=== PATIENT | male | born 1955 | race Two or more races ===

== ENCOUNTER 2022-11-04 11:28 | Emergency (ER) | payer MEDICARE, MEDICAID, SELFPAY ==
--- NOTE | ~2022-11-04 | XR_ITS ---
EXAMINATION: XR CHEST CLINICAL INFORMATION: Leg swelling COMPARISON: None TECHNIQUE: 2 views of the chest were obtained. FINDINGS: Normal symmetric lung volumes. No parenchymal consolidation. No pleural effusion. No pneumothorax. Cardiomediastinal silhouette and pulmonary vascularity are within normal limits. Aorta is atherosclerotic. No acute osseous abnormalities. XR/XR chest 2V IMPRESSION: Clear lungs
[2022-11-04 11:51] VITALS: BP 157/80; PULSE 83; RESP 18; TEMP 36.7; O2SAT 97; BMI 19.8
--- NOTE | 2022-11-04 11:51 | ED_ITS ---
HPI - General Adult General Chief complaint: Extremity Problem <Hali Goodman NP - Last Filed: 11/04/22 11:57> Stated complaint: both feet swollen and purple <Hali Goodman NP - Last Filed: 11/04/22 11:57> Time Seen by Provider: 11/04/22 11:50 <Hali Goodman NP - Last Filed: 11/04/22 11:57> Source: patient <Payal Mchugh MD - Last Filed: 11/04/22 16:50> Mode of arrival: ambulatory <Payal Mchugh MD - Last Filed: 11/04/22 16:50> History of Present Illness HPI narrative: 67-year-old male is brought in by his healthcare proxy for concerns regarding bilateral lower extremity swelling for 1 week. Family member states that patient was recently diagnosed with a ?mass near his heart?. Otherwise, patient is an everyday smoker as well as consuming alcohol. Patient himself denies any shortness of breath or chest pain denies any GI or symptoms. <Payal Mchugh MD - Last Filed: 11/04/22 16:50> Related Data Allergies/adverse reactions: Allergies Allergy/AdvReac Type Severity Reaction Status Date / Time No Known Allergies Allergy Verified 11/04/22 11:56 <Hali Goodman NP - Last Filed: 11/04/22 11:57> Review of Systems Review of Systems: Pertinent positives and negatives as stated in HPI <Payal Mchugh MD - Last Filed: 11/04/22 16:50> PMFSH Past Medical History Source: nursing notes reviewed <Payal Mchugh MD - Last Filed: 11/04/22 16:50> Medical History: Medical History HTN (hypertension) <Hali Goodman NP - Last Filed: 11/04/22 11:57> Social History Social History: Social History Smoked in Last 30 Days: Yes Use of substances other than those prescribed or required for medical reasons: No Advance Directives: No Advance Directives Information Provided: No <Hali Goodman NP - Last Filed: 11/04/22 11:57> Physical Exam ED Vital Signs: Vital Signs - 24 hr 11/04/22 11:51 11/04/22 13:11 11/04/22 14:41 Temperature 98.1 F Pulse Rate 83 95 83 Respiratory Rate 18 18 14 Blood Pressure 157/80 H 156/77 H 137/76 Pulse Oximetry 97 96 96 Oxygen Delivery Method Room Air Room Air Room Air 11/04/22 15:37 Temperature 98.3 F Pulse Rate 78 Respiratory Rate 16 Blood Pressure 146/74 H Pulse Oximetry 98 Oxygen Delivery Method Room Air BMI result Body Mass Index 19.8 <Hali Goodman NP - Last Filed: 11/04/22 11:57> Vital Signs - 24 hr 11/04/22 11:51 11/04/22 13:11 11/04/22 14:41 Temperature 98.1 F Pulse Rate 83 95 83 Respiratory Rate 18 18 14 Blood Pressure 157/80 H 156/77 H 137/76 Pulse Oximetry 97 96 96 Oxygen Delivery Method Room Air Room Air Room Air 11/04/22 15:37 Temperature 98.3 F Pulse Rate 78 Respiratory Rate 16 Blood Pressure 146/74 H Pulse Oximetry 98 Oxygen Delivery Method Room Air BMI result Body Mass Index 19.8 VITAL SIGNS: Reviewed. GENERAL: Chronically ill, elderly, frail, in no acute distress. HEAD: Normocephalic/atraumatic EYES: PERRLA, EOMI EARS: Ext canals without abnormality NOSE: Nares patent bilateral OROPHARYNX: no oral lesions noted, posterior pharynx clear LUNGS: Normal breath sounds. No adventitious sounds or accessory muscle use. SpO2<96> CARDIOVASCULAR: Regular rate and rhythm +murmurs, no JVD but bilateral 2+ pitting ankle edema ABDOMEN: Soft, non-tender, non-distended with bowel sounds. MUSCULOSKELETAL: No tenderness, deformities, or effusions noted on gross inspection. EXTREMITIES: No cyanosis, clubbing or edema. SKIN: Inspection of the skin reveals no rashes NEUROLOGIC: Alert and oriented x 2. Strength and sensation to light touch were grossly intact x 4. <Payal Mchugh MD - Last Filed: 11/04/22 16:50> Course Course Course Narrative: This is rapid medical exam. Deferred additional HPI, ROS, PE to primary provider. 67 yo male w/ history of HTN here with 1 week of bilateral foot/leg s welling. No cough, shortness of breath, chest pain, pain in the legs. On exam patient with discoloration of both LE, slight swelling. VSS. Will obtain labs, CXR. Patient informed by ?PCP that he had a mass around his heart. Has upcoming appt with new PCP to discuss further. <Hali Goodman NP - Last Filed: 11/04/22 11:57> Medical Decision Making Medical Decision Making [facility] Narrative: 67-year-old male with what appears to be chronic bilateral ankle swelling, am unclear what this ?mass next to the heart? is since there were no clinical findings to better explain this. I reviewed all investigations my interpretation is that this patient has very mild symmetrical ankle swelling consistent with underlying but stable cardiac condition and may be contributed by his antihypertensive which is amlodipine. Patient otherwise appears well, no acute distress, hemodynamically stable is otherwise discharged home with instructions to use compression stockings and follow-up with his primary care provider. Although I did request records from [facility] regarding this mass next to his heart we did not received the documentation prior to this patient is discharged. <Payal Mchugh MD - Last Filed: 11/04/22 16:50> Differential Diagnosis Differential Diagnoses: The differential diagnosis associated with the presentation includes <Payal Mchugh MD - Last Filed: 11/04/22 16:50> Please see the discussion <Payal Mchugh MD - Last Filed: 11/04/22 16:5 0> Lab Data [facility] Lab Attestation statement: I reviewed the patient's lab results. <Payal Mchugh MD - Last Filed: 11/04/22 16:50> Please see the discussion <Payal Mchugh MD - Last Filed: 11/04/22 16:50> Result Diagrams: 11/04/22 12:02 11/04/22 12:02 <Hali Goodman NP - Last Filed: 11/04/22 11:57> Labs: Lab Results 11/04/22 11/04/22 11/04/22 Range/Units 12:02 12:02 12:02 WBC 9.6 (4.8-10.8) X10*3/uL RBC 4.16 L (4.60-5.80) X10*6/uL Hgb 12.6 L (14.0-18.0) g/dl Hct 37.2 L (42.0-52.0) % MCV 89.4 (80.0-98.0) fL MCH 30.3 (27.0-33.0) pg MCHC 33.9 (31.0-36.0) g/dl RDW 15.0 (11.0-16.0) % Plt Count 183 (160-400) X10*3/uL MPV 11.6 (9.4-12.4) fL Immature Gran % (Auto) 0.3 (0.0-0.4) % Neut % (Auto) 60.6 (45-73) % Lymph % (Auto) 24.7 (20-40) % [place]ink % (Auto) 11.8 H (2-11) % Eos % (Auto) 2.1 (0-4) % Baso % (Auto) 0.5 (0-2) % Lymph # (Auto) 2.4 (1.2-4.9) X10*3/uL Spink # (Auto) 1.1 (0.1-1.2) X10*3/uL Eos # (Auto) 0.2 (0.0-0.4) X10*3/uL Baso # (Auto) 0.1 (0.0-0.2) X10*3/uL Abs Immat Gran (auto) 0.03 (0.00-0.03) X10*3/uL Absolute Neuts (auto) 5.8 (2.0-8.3) x10*3/uL Absolute Nucleated RBC 0.000 (0.0-0.012) X10*3/uL Nucleated RBC % (auto) 0.0 (0.0-0.2) /100WBC Sodium 145 (135-145) mmol/L Potassium 3.6 (3.3-5.1) mmol/L Chloride 107 (96-108) mmol/L Carbon Dioxide 28 (22-29) mmol/L Anion Gap 14 (12-20) BUN 3 L (9-16) mg/dL Creatinine 0.86 (0.5-1.4) mg/dL Estim Creat Clear Calc 82.4 Estimated GFR > 60 Random Glucose 92 (60-115) mg/dL Calcium 8.9 (8.4-10.2) mg/dL Magnesium 1.6 (1.6-2.6) mg/dL Total Bilirubin 0.6 (0.0-1.0) mg/dL Direct Bilirubin 0.2 (0.0-0.5) mg/dL AST 19 (5-37) U/L ALT 12 (0-40) U/L Alkaline Phosphatase 92 (39-117) U/L B-Natriuretic Peptide 43 (<100) pg/mL Total Protein 6.9 (6.5-8.0) g/dL Albumin 4.0 (3.5-5.0) g/dL Urine Color Urine Appearance Urine pH (5.0-9.0) Ur Specific [place] (1.005-1.025) Urine Protein (Neg-Trace) mg/dL Urine Glucose (UA) (Negative) mg/dL Urine Ketones (Negative) mg/dL Urine Blood (Negative) Urine Nitrite (Negative) Ur Leukocyte Esterase (Negative) COVID-19 (DEISY) (Negative) COVID-19 Clin Com Influenza Type A (NINO) (Negative) Influenza Type B (NINO) (Negative) Influenza A & B Note 11/04/22 11/04/22 11/04/22 Range/Units 15:42 15:42 15:42 WBC (4.8-10.8) X10*3/uL RBC (4.60-5.80) X10*6/uL Hgb (14.0-18.0) g/dl Hct (42.0-52.0) % MCV (80.0-98.0) fL MCH (27.0-33.0) pg MCHC (31.0-36.0) g/dl RDW (11.0-16.0) % Plt Count (160-400) X10*3/uL MPV (9.4-12.4) fL Immature Gran % (Auto) (0.0-0.4) % Neut % (Auto) (45-73) % Lymph % (Auto) (20-40) % [place] % (Auto) (2-11) % Eos % (Auto) (0-4) % Baso % (Auto) (0-2) % Lymph # (Auto) (1.2-4.9) X10*3/uL [place] # (Auto) (0.1-1.2) X10*3/uL Eos # (Auto) (0.0-0.4) X10*3/uL Baso # (Auto) (0.0-0.2) X10*3/uL Abs Immat Gran (auto) (0.00-0.03) X10*3/uL Absolute Neuts (auto) (2.0-8.3) x10*3/uL Absolute Nucleated RBC (0.0-0.012) X10*3/uL Nucleated RBC % (auto) (0.0-0.2) /100WBC Sodium (135-145) mmol/L Potassium (3.3-5.1) mmol/L Chloride (96-108) mmol/L Carbon Dioxide (22-29) mmol/L Anion Gap (12-20) BUN (9-16) mg/dL Creatinine (0.5-1.4) mg/dL Estim Creat Clear Calc Estimated GFR Random Glucose (60-115) mg/dL Calcium (8.4-10.2) mg/dL Magnesium (1.6-2.6) mg/dL Total Bilirubin (0.0-1.0) mg/dL Direct Bilirubin (0.0-0.5) mg/dL AST (5-37) U/L ALT (0-40) U/L Alkaline Phosphatase (39-117) U/L B-Natriuretic Peptide (<100) pg/mL Total Protein (6.5-8.0) g/dL Albumin (3.5-5.0) g/dL Urine Color Yellow Urine Appearance Clear Urine pH 7.0 (5.0-9.0) Ur Specific [place] 1.010 (1.005-1.025) Urine Protein Negative (Neg-Trace) mg/dL Urine Glucose (UA) Negative (Negative) mg/dL Urine Ketones Negative (Negative) mg/dL Urine Blood Negative (Negative) Urine Nitrite Negative (Negative) Ur Leukocyte Esterase Negative (Negative) COVID-19 (DEISY) Negative (Negative) COVID-19 Clin Com See Note Influenza Type A (NINO) Negative (Negative) Influenza Type B (NINO) Negative (Negative) Influenza A & B Note See Note <Hali Goodman, CEMENT PAVER - Last Filed: 11/04/22 11:57> Lab Results 11/04/22 11/04/22 11/04/22 Range/Units 12:02 12:02 12:02 WBC 9.6 (4.8-10.8) X10*3/uL RBC 4.16 L (4.60-5.80) X10*6/uL Hgb 12.6 L (14.0-18.0) g/dl Hct 37.2 L (42.0-52.0) % MCV 89.4 (80.0-98.0) fL MCH 30.3 (27.0-33.0) pg MCHC 33.9 (31.0-36.0) g/dl RDW 15.0 (11.0-16.0) % Plt Count 183 (160-400) X10*3/uL MPV 11.6 (9.4-12.4) fL Immature Gran % (Auto) 0.3 (0.0-0.4) % Neut % (Auto) 60.6 (45-73) % Lymph % (Auto) 24.7 (20-40) % [place] % (Auto) 11.8 H (2-11) % Eos % (Auto) 2.1 (0-4) % Baso % (Auto) 0.5 (0-2) % Lymph # (Auto) 2.4 (1.2-4.9) X10*3/uL [place] # (Auto) 1.1 (0.1-1.2) X10*3/uL Eos # (Auto) 0.2 (0.0-0.4) X10*3/uL Baso # (Auto) 0.1 (0.0-0.2) X10*3/uL Abs Immat Gran (auto) 0.03 (0.00-0.03) X10*3/uL Absolute Neuts (auto) 5.8 (2.0-8.3) x10*3/uL Absolute Nucleated RBC 0.000 (0.0-0.012) X10*3/uL Nucleated RBC % (auto) 0.0 (0.0-0.2) /100WBC Sodium 145 (135-145) mmol/L Potassium 3.6 (3.3-5.1) mmol/L Chloride 107 (96-108) mmol/L Carbon Dioxide 28 (22-29) mmol/L Anion Gap 14 (12-20) BUN 3 L (9-16) mg/dL Creatinine 0.86 (0.5-1.4) mg/dL Estim Creat Clear Calc 82.4 Estimated GFR > 60 Random Glucose 92 (60-115) mg/dL Calcium 8.9 (8.4-10.2) mg/dL Magnesium 1.6 (1.6-2.6) mg/dL Total Bilirubin 0.6 (0.0-1.0) mg/dL Direct Bilirubin 0.2 (0.0-0.5) mg/dL AST 19 (5-37) U/L ALT 12 (0-40) U/L Alkaline Phosphatase 92 (39-117) U/L B-Natriuretic Peptide 43 (<100) pg/mL Total Protein 6.9 (6.5-8.0) g/dL Albumin 4.0 (3.5-5.0) g/dL Urine Color Urine Appearance Urine pH (5.0-9.0) Ur Specific [place] (1.005-1.025) Urine Protein (Neg-Trace) mg/dL Urine Glucose (UA) (Negative) mg/dL Urine Ketones (Negative) mg/dL Urine Blood (Negative) Urine Nitrite (Negative) Ur Leukocyte Esterase (Negative) COVID-19 (DEISY) (Negative) COVID-19 Clin Com Influenza Type A (NINO) (Negative) Influenza Type B (NINO) (Negative) Influenza A & B Note 11/04/22 11/04/22 11/04/22 Range/Units 15:42 15:42 15:42 WBC (4.8-10.8) X10*3/uL RBC (4.60-5.80) X10*6/uL Hgb (14.0-18.0) g/dl Hct (42.0-52.0) % MCV (80.0-98.0) fL MCH (27.0-33.0) pg MCHC (31.0-36.0) g/dl RDW (11.0-16.0) % Plt Count (160-400) X10*3/uL MPV (9.4-12.4) fL Immature Gran % (Auto) (0.0-0.4) % Neut % (Auto) (45-73) % Lymph % (Auto) (20-40) % [place] % (Auto) (2-11) % Eos % (Auto) (0-4) % Baso % (Auto) (0-2) % Lymph # (Auto) (1.2-4.9) X10*3/uL [place] # (Auto) (0.1-1.2) X10*3/uL Eos # (Auto) (0.0-0.4) X10*3/uL Baso # (Auto) (0.0-0.2) X10*3/uL Abs Immat Gran (auto) (0.00-0.03) X10*3/uL Absolute Neuts (auto) (2.0-8.3) x10*3/uL Absolute Nucleated RBC (0.0-0.012) X10*3/uL Nucleated RBC % (auto) (0.0-0.2) /100WBC Sodium (135-145) mmol/L Potassium (3.3-5.1) mmol/L Chloride (96-108) mmol/L Carbon Dioxide (22-29) mmol/L Anion Gap (12-20) BUN (9-16) mg/dL Creatinine (0.5-1.4) mg/dL Estim Creat Clear Calc Estimated GFR Random Glucose (60-115) mg/dL Calcium (8.4-10.2) mg/dL Magnesium (1.6-2.6) mg/dL Total Bilirubin (0.0-1.0) mg/dL Direct Bilirubin (0.0-0.5) mg/dL AST (5-37) U/L ALT (0-40) U/L Alkaline Phosphatase (39-117) U/L B-Natriuretic Peptide (<100) pg/mL Total Protein (6.5-8.0) g/dL Albumin (3.5-5.0) g/dL Urine Color Yellow Urine Appearance Clear Urine pH 7.0 (5.0-9.0) Ur Specific [place] 1.010 (1.005-1.025) Urine Protein Negative (Neg-Trace) mg/dL Urine Glucose (UA) Negative (Negative) mg/dL Urine Ketones Negative (Negative) mg/dL Urine Blood Negative (Negative) Urine Nitrite Negative (Negative) Ur Leukocyte Esterase Negative (Negative) COVID-19 (DEISY) Negative (Negative) COVID-19 Clin Com See Note Influenza Type A (NINO) Negative (Negative) Influenza Type B (NINO) Negative (Negative) Influenza A & B Note See Note <Payal Mchugh MD - Last Filed: 11/04/22 16:50> Independent Interpretation I performed an independent interpretation of an: EKG <Payal Mchugh MD - Last Filed: 11/04/22 16:50> Interpretation: Normal sinus rhythm, HR-78, no STEMI, MD/QRS/QTC is within normal limits. <Payal Mchugh MD - Last Filed: 11/04/22 16:50> Radiology Impression Radiologist Impression: My interpretation is in agreement with radiology impression of imaging study. <Payal Mchugh MD - Last Filed: 11/04/22 16:50> Chronic Conditions Patient?s care impacted by: Hypertension <Payal Mchugh MD - Last Filed: 11/04/22 16:50> Discharge Plan Discharge Clinical Impression: Lower extremity edema <Hali Goodman NP - Last Filed: 11/04/22 11:57> Patient Disposition: Home, Self-Care <Hali Goodman NP - Last Filed: 11/04/22 11:57> Additional Instructions: 1. Resume all home medications as prescribed. Recommend knee-high compression stockings for lower leg swelling. 2. Recommend that you follow-up with the primary care provider by calling the office today and setting up an appointment for re-evaluation. 3. I have provided a referral for Cardiology and you should also call the office for an appointment. Return to the ER for any worsening symptoms. <Hali Goodman NP - Last Filed: 11/04/22 11:57> Referrals: Adi Marin MD [Physician] - <Hali Goodman NP - Last Filed: 11/04/22 11:57>
[2022-11-04 12:08] LABS: MANUAL DIFF FLAG NO
[2022-11-04 12:13] LABS: Basophils Absolute Auto 0.1 X10*3/uL (0.0-0.2); Basophils Percent Auto 0.5 % (0-2); Eosinophils Absolute Auto 0.2 X10*3/uL (0.0-0.4); Eosinophils Percent Auto 2.1 % (0-4); Hematocrit 37.2 % (42.0-52.0); Hemoglobin 12.6 g/dl (14.0-18.0); Imm Gran Abs Auto 0.03 X10*3/uL (0.00-0.03); Imm Gran Pct Auto 0.3 % (0.0-0.4); Lymphocytes Absolute Auto 2.4 X10*3/uL (1.2-4.9); Lymphocytes Percent Auto 24.7 % (20-40); Mean Corpuscular HGB Conc 33.9 g/dl (31.0-36.0); Mean Corpuscular Hemoglobin 30.3 pg (27.0-33.0); Mean Corpuscular Volume 89.4 fL (80.0-98.0); Mean Platelet Volume 11.6 fL (9.4-12.4); Monocytes Absolute Auto 1.1 X10*3/uL (0.1-1.2); Monocytes Percent Auto 11.8 % (2-11); Neutrophils Absolute Auto 5.8 x10*3/uL (2.0-8.3); Neutrophils Percent Auto 60.6 % (45-73); Platelet Count 183 X10*3/uL (160-400); Red Blood Count 4.16 X10*6/uL (4.60-5.80); White Blood Count 9.6 X10*3/uL (4.8-10.8)
[2022-11-04 12:32] LABS: B Type Natriuretic Peptide 43 pg/mL (<100)
[2022-11-04 12:54] LABS: Alanine Aminotransferase 12 U/L (0-40); Alkaline Phosphatase 92 U/L (39-117); Anion Gap 14 (12-20); Aspartate Amino Transferase 19 U/L (5-37); Bilirubin Direct 0.2 mg/dL (0.0-0.5); Bilirubin Total 0.6 mg/dL (0.0-1.0); Blood Urea Nitrogen 3 mg/dL (9-16); Calcium 8.9 mg/dL (8.4-10.2); Carbon Dioxide 28 mmol/L (22-29); Chloride 107 mmol/L (96-108); Creatinine Clr Calc Pharmacy 82.4; Estimated Glomerular Filt Rate > 60; Glucose Random 92 mg/dL (60-115); Magnesium 1.6 mg/dL (1.6-2.6); Potassium 3.6 mmol/L (3.3-5.1); Sodium 145 mmol/L (135-145); Total Protein 6.9 g/dL (6.5-8.0)
[2022-11-04 13:11] VITALS: BP 156/77; PULSE 95; RESP 18; O2SAT 96
--- NOTE | 2022-11-04 13:15 | PC.NURSE ---
pt alert but slightly confused at baseline, unable to state the president or the year, skin appropriate for ethnicity, respirations even and unlabored, pt is coming in with bilateral lower extremities swelling- peding edema +2 up to the calf area, legs are red and warm to the touch, denies pain but states that his legs feel like pins and needles/tingling
[2022-11-04 14:41] VITALS: BP 137/76; PULSE 83; RESP 14; O2SAT 96
[2022-11-04 15:37] VITALS: BP 146/74; PULSE 78; RESP 16; TEMP 36.8; O2SAT 98
--- NOTE | 2022-11-04 15:38 | MHC.EDTECH ---
this pct assumed care of pt at 1500 ,1600 vitals sign taken ,urine sample ,covid and flu swab collected and send to lab .
[2022-11-04 15:47] LABS: Appearance Urine Clear; Color Urine Yellow; Glucose Urine UA Negative (Negative); Leukocyte Esterase Urine Negative (Negative); Nitrite Urine Negative (Negative); Urine Blood Negative (Negative); Urine Ketones Negative (Negative); Urine Protein Negative (Neg-Trace)
[2022-11-04 16:18] LABS: COVID-19 Test Negative (Negative); IDNOW Serial# 16C4AD1C; IDNOW Serial# BCCEAD1C; Influenza A Negative (Negative); Influenza B2 Negative (Negative)
--- NOTE | 2022-11-04 16:34 | ECG_ITS ---
Test Reason : WEAKNESS Blood Pressure : / mmHG Vent. Rate : 078 BPM Atrial Rate : 078 BPM P-R Int : 160 ms QRS Dur : 076 ms QT Int : 376 ms P-R-T Axes : 074 079 076 degrees QTc Int : 428 ms Normal sinus rhythm Normal ECG No previous ECGs available Referred By: Payal Mchugh Electronically Signed By:Adi Marin
--- NOTE | 2022-11-04 17:18 | PC.NURSE ---
called sheri at [phone] the pt's sister for a ride back home, but nobody picked up, this rn left a message to call ed ED
[2022-11-04 18:47] VITALS: BP 160/83; PULSE 73; RESP 18
--- NOTE | 2022-11-04 18:48 | PC.NURSE ---
pt awaiting for the sister to arrive for a ride home, ride is supposabley arriving around 1829
== END 2022-11-04 19:58 | disposition home or self-care (01) ==
PROVIDERS: Nurse Practitioner Family; Emergency Provider Student in an Organized Health Care Education/Training Program
DX: R60.0 Localized edema (principal); R06.02 Shortness of breath; R53.1 Weakness; R07.89 Other chest pain; Z20.822 Contact with and (suspected) exposure to COVID-19; Z20.828 Contact with and (suspected) exposure to other viral communicable diseases; Z79.899 Other long term (current) drug therapy
CPT/HCPCS: 36415; 71046; 80048; 80076; 81003; 83735; 83880; 85025; 87502; 87635; 93005; 99283; 99284